=== PATIENT | female | born 1950 | race Caucasian/White ===

== ENCOUNTER 2021-03-14 18:57 | Emergency (ER) | payer MEDICARE ==
[2021-03-14] MEDS ORDERED: Sodium Chloride 0.9% 10 ML Syringe FLUSH PRN (19:40)
[2021-03-14] MEDS ORDERED: Adenosine 6 MG/2 ML SDV IVPUSH ONE ×2 (19:41)
[2021-03-14] MEDS ORDERED: Diltiazem 25 MG/5 ML SDV IVPUSH ONE (19:59)
[2021-03-14] MEDS ORDERED: Diltiazem 25 MG/5 ML SDV ONE (19:59)
--- NOTE | 2021-03-14 20:12 | EDM.PDOC ---
ED HPI GENERAL MEDICAL PROBLEM - General Chief Complaint: General Stated Complaint: COUGH,CHILLS, LIGHT HEADED Time Seen by Provider: 03/14/21 19:39 Source of Information: Reports: Patient, RN Notes Reviewed History Limitations: Reports: No Limitations - History of Present Illness INITIAL COMMENTS - FREE TEXT/NARRATIVE: 70-year-old female presents emergency department day complaint of palpitations, shortness of breath, she is unvaccinated recently took a Covid test she is unsure if it might have been positive. She has had a sore throat and cough for the last 2 days, never had any history of palpitations only takes reflux medication [id number]. 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: - Past Surgical History GI Surgical History: Reports: Appendectomy, Cholecystectomy Female Surgical History: Reports: Hysterectomy Social & Family History - Tobacco Use Tobacco Use Status *Q: Never Tobacco User - Caffeine Use Caffeine Use: Reports: Coffee - Recreational Drug Use Recreational Drug Use: No ED ROS GENERAL - Review of Systems Review Of Systems: See Below Constitutional: Reports: No Symptoms HEENT: Reports: No Symptoms Respiratory: Reports: Shortness of Breath, Cough Cardiovascular: Reports: Dyspnea on Exertion, Palpitations GI/Abdominal: Reports: No Symptoms ED EXAM, GENERAL - Physical Exam Exam: See Below Exam Limited By: No Limitations General Appearance: Alert, WD/WN, No Apparent Distress Respiratory/Chest: No Respiratory Distress, Lungs Clear, Normal Breath Sounds, No Accessory Muscle Use, Chest Non-Tender Cardiovascular: Tachycardia GI/Abdominal: Soft, Non-Tender #1 Interpretation EKG Date: 03/14/21 Time: 21:32 Rhythm: Other (SVT) [place]: Other P-Wave: Absent QRS: RBBB ST-T: Normal QT: Normal Comparison: Change From Previous EKG #2 Interpretation EKG Date: 03/14/21 Time: 21:50 Rhythm: NSR Rate (Beats/Min): 76 [place]: Normal P-Wave: Present QRS: RBBB ST-T: Normal QT: Normal Comparison: Change From Previous EKG Course - Vital Signs Last Recorded V/S: Last Vital Signs Temp 97.5 F 03/14/21 19:25 Pulse 75 03/14/21 22:15 Resp 19 03/14/21 22:15 BP 123/55 L 03/14/21 22:15 Pulse Ox 97 03/14/21 22:15 - Orders/Labs/Meds Orders: Active Orders 24 hr Category Date Time Status Cardiac Monitoring [RC] .As Directed Care 03/14/21 19:40 Active Peripheral IV Care [RC] . DIRECTED Care 03/14/21 19:40 Active Chest 1V Frontal [CR] Stat Exams 03/14/21 19:40 Taken Iopamidol [Isovue-370 (76%)] Med 03/14/21 22:45 Active 71 ml IV . DIRECTED Sodium Chloride 0.9% [Normal Saline] 100 ml Med 03/14/21 22:45 Active IV ASDIRECTED Sodium Chloride 0.9% [Saline Flush] Med 03/14/21 19:40 Active 10 ml FLUSH ASDIRECTED PRN ED Antiarrhythmia Med Reflex [OM.PC] Stat Oth 03/14/21 19:40 Ordered Isolation [COMM] Stat Oth 03/14/21 19:50 Ordered Peripheral IV Insertion Adult [OM.PC] Stat Oth 03/14/21 19:40 Ordered Saline Lock Insert [OM.PC] Stat Oth 03/14/21 19:40 Ordered EKG 12 Lead [EK] Stat Ther 03/14/21 19:40 Ordered EKG 12 Lead [EK] Stat Ther 03/14/21 21:31 Ordered Medication Orders Sodium Chloride (Normal Saline) 100 mls @ 3 mls/sec IV ASDIRECTED DEA Last Admin: 03/14/21 23:14 Dose: 4 mls/sec Documented by: SHARON Iopamidol (Iopamidol 755 Mg/Ml 100 Ml Bottle) 71 ml IV . DIRECTED DEA Last Admin: 03/14/21 23:13 Dose: 71 ml Documented by: SHARON Sodium Chloride (Sodium Chloride 0.9% 10 Ml Syringe) 10 ml FLUSH ASDIRECTED PRN PRN Reason: Keep Vein Open Last Admin: 11/15/21 19:59 Dose: 10 ml Documented by: DAY Labs: Laboratory Tests 03/14/21 03/14/21 03/14/21 Range/Units 19:40 19:40 19:40 WBC 6.3 (4.5-11.0) K/uL RBC 5.24 (3.30-5.50) M/uL Hgb 16.0 H (12.0-15.0) g/dL Hct 46.1 (36.0-48.0) % MCV 88 (80-98) fL MCH 31 (27-31) pg MCHC 35 (32-36) % Plt Count 234 (150-400) K/uL Neut % (Auto) 54.7 (36-66) % Lymph % (Auto) 31.4 (24-44) % Snyder % (Auto) 13.3 H (2-6) % Eos % (Auto) 0.3 L (2-4) % Baso % (Auto) 0.3 (0-1) % D-Dimer, Quantitative (0.0-500.0) ng/mL Sodium 138 L (140-148) mmol/L Potassium 4.1 (3.6-5.2) mmol/L Chloride 104 (100-108) mmol/L Carbon Dioxide 22 (21-32) mmol/L Anion Gap 16.1 H (5.0-14.0) mmol/L BUN 20 H (7-18) mg/dL Creatinine 1.0 (0.6-1.0) mg/dL Est Cr Clr Drug Dosing 50.90 mL/min Estimated GFR (MDRD) 55 L (>60) Glucose 150 H (74-106) mg/dL Lactic Acid 2.1 H (0.4-2.0) mmol/L Calcium 8.8 (8.5-10.1) mg/dL Magnesium (1.8-2.4) mg/dL Total Bilirubin 0.4 (0.2-1.0) mg/dL AST 18 (15-37) U/L ALT 21 (12-78) U/L Alkaline Phosphatase 80 (46-116) U/L Troponin I < 0.017 (0.000-0.056) ng/mL NT-Pro-B Natriuret Pep (5-125) pg/mL Total Protein 7.0 (6.4-8.2) g/dL Albumin 3.8 (3.4-5.0) g/dL Globulin 3.2 (2.3-3.5) g/dL Albumin/Globulin Ratio 1.2 (1.2-2.2) TSH, Ultra Sensitive (0.358-3.740) uIU/mL Influenza Type A RNA (NEGATIVE) RSV RNA (INAAT) (NEGATIVE) Influenza Type B RNA (NEGATIVE) SARS-CoV-2 RNA (FÉLIX) (NEGATIVE) 03/14/21 03/14/21 03/14/21 Range/Units 19:50 20:09 20:10 WBC (4.5-11.0) K/uL RBC (3.30-5.50) M/uL Hgb (12.0-15.0) g/dL Hct (36.0-48.0) % MCV (80-98) fL MCH (27-31) pg MCHC (32-36) % Plt Count (150-400) K/uL Neut % (Auto) (36-66) % Lymph % (Auto) (24-44) % Snyder % (Auto) (2-6) % Eos % (Auto) (2-4) % Baso % (Auto) (0-1) % D-Dimer, Quantitative (0.0-500.0) ng/mL Sodium (140-148) mmol/L Potassium (3.6-5.2) mmol/L Chloride (100-108) mmol/L Carbon Dioxide (21-32) mmol/L Anion Gap (5.0-14.0) mmol/L BUN (7-18) mg/dL Creatinine (0.6-1.0) mg/dL Est Cr Clr Drug Dosing mL/min Estimated GFR (MDRD) (>60) Glucose (74-106) mg/dL Lactic Acid (0.4-2.0) mmol/L Calcium (8.5-10.1) mg/dL Magnesium 1.8 (1.8-2.4) mg/dL Total Bilirubin (0.2-1.0) mg/dL AST (15-37) U/L ALT (12-78) U/L Alkaline Phosphatase (46-116) U/L Troponin I (0.000-0.056) ng/mL NT-Pro-B Natriuret Pep 238 H (5-125) pg/mL Total Protein (6.4-8.2) g/dL Albumin (3.4-5.0) g/dL Globulin (2.3-3.5) g/dL Albumin/Globulin Ratio (1.2-2.2) TSH, Ultra Sensitive 2.688 (0.358-3.740) uIU/mL Influenza Type A RNA Negative (NEGATIVE) RSV RNA (INAAT) Negative (NEGATIVE) Influenza Type B RNA Negative (NEGATIVE) SARS-CoV-2 RNA (FÉLIX) Positive H (NEGATIVE) 03/14/21 Range/Units 21:41 WBC (4.5-11.0) K/uL RBC (3.30-5.50) M/uL Hgb (12.0-15.0) g/dL Hct (36.0-48.0) % MCV (80-98) fL MCH (27-31) pg MCHC (32-36) % Plt Count (150-400) K/uL Neut % (Auto) (36-66) % Lymph % (Auto) (24-44) % Snyder % (Auto) (2-6) % Eos % (Auto) (2-4) % Baso % (Auto) (0-1) % D-Dimer, Quantitative 654.62 H (0.0-500.0) ng/mL Sodium (140-148) mmol/L Potassium (3.6-5.2) mmol/L Chloride (100-108) mmol/L Carbon Dioxide (21-32) mmol/L Anion Gap (5.0-14.0) mmol/L BUN (7-18) mg/dL Creatinine (0.6-1.0) mg/dL Est Cr Clr Drug Dosing mL/min Estimated GFR (MDRD) (>60) Glucose (74-106) mg/dL Lactic Acid (0.4-2.0) mmol/L Calcium (8.5-10.1) mg/dL Magnesium (1.8-2.4) mg/dL Total Bilirubin (0.2-1.0) mg/dL AST (15-37) U/L ALT (12-78) U/L Alkaline Phosphatase (46-116) U/L Troponin I (0.000-0.056) ng/mL NT-Pro-B Natriuret Pep (5-125) pg/mL Total Protein (6.4-8.2) g/dL Albumin (3.4-5.0) g/dL Globulin (2.3-3.5) g/dL Albumin/Globulin Ratio (1.2-2.2) TSH, Ultra Sensitive (0.358-3.740) uIU/mL Influenza Type A RNA (NEGATIVE) RSV RNA (INAAT) (NEGATIVE) Influenza Type B RNA (NEGATIVE) SARS-CoV-2 RNA (FÉLIX) (NEGATIVE) Meds: Medications Generic Name Dose Route Start Last Admin Trade Name Freq PRN Reason Stop Dose Admin Sodium Chloride 100 mls @ 3 mls/sec 03/14/21 22:45 03/14/21 23:14 Normal Saline IV 4 mls/sec ASDIRECTED DEA Administration Iopamidol 71 ml 03/14/21 22:45 03/14/21 23:13 Iopamidol 755 Mg/Ml 100 Ml Bottle IV 71 ml . DIRECTED DEA Administration Sodium Chloride 10 ml 03/14/21 19:40 03/14/21 19:59 Sodium Chloride 0.9% 10 Ml Syringe FLUSH 10 ml ASDIRECTED PRN Administration Keep Vein Open Discontinued Medications Generic Name Dose Route Start Last Admin Trade Name Freq PRN Reason Stop Dose Admin Adenosine 12 mg 03/14/21 19:41 03/14/21 20:05 Adenosine 6 Mg/2 Ml Sdv IVPUSH 03/14/21 19:42 Not Given NOW ONE Adenosine 6 mg 03/14/21 19:41 03/14/21 19:55 Adenosine 6 Mg/2 Ml Sdv IVPUSH 03/14/21 19:42 6 mg NOW ONE Administration Diltiazem HCl 20 mg 03/14/21 19:59 03/14/21 20:00 Diltiazem 25 Mg/5 Ml Sdv IVPUSH 03/14/21 20:00 20 mg ONETIME ONE Administration Diltiazem HCl Confirm 03/14/21 19:59 03/14/21 20:05 Diltiazem 25 Mg/5 Ml Sdv Administered 03/14/21 20:00 Not Given Dose 25 mg .ROUTE .STK-MED ONE Metoprolol Tartrate 5 mg 03/14/21 21:10 Metoprolol Tartrate 5 Mg/5 Ml Sdv IVPUSH 03/14/21 21:11 ONETIME ONE Departure - Departure Time of Disposition: 00:28 Disposition: Home, Self-Care 01 Condition: Fair Clinical Impression: COVID-19, Paroxysmal SVT (supraventricular tachycardia) - Discharge Information Instructions: 10 Things You Can Do to Manage Your COVID-19 Symptoms at Home - [facility] (11/12/2020), Supraventricular Tachycardia, Adult, [id number] Referrals: PCP,None [Primary Care Provider] - Forms: ED Department Discharge Additional Instructions: Outpatient surgery center will call you for an appointment time for your monoclonal antibody therapy, please follow-up with your primary care after your Covid has run its course for further evaluation of the supraventricular tachycardia call return to the emergency department worsening of symptoms Sepsis Event Note (ED) - Evaluation Sepsis Screening Result: No Definite Risk - Focused Exam Vital Signs: Vital Signs Temp Pulse Resp BP Pulse Ox 03/14/21 22:15 75 19 123/55 L 97 03/14/21 21:45 78 23 H 116/71 93 L 03/14/21 20:45 154 H 24 H 103/64 95 03/14/21 20:05 125 H 20 102/47 L 94 L 03/14/21 19:25 97.5 F 170 H 19 120/70 97 - My Orders Last 24 Hours: My Active Orders 03/14/21 19:40 Cardiac Monitoring [RC] .As Directed Peripheral IV Care [RC] . DIRECTED Chest 1V Frontal [CR] Stat Sodium Chloride 0.9% [Saline Flush] 10 ml FLUSH ASDIRECTED PRN ED Antiarrhythmia Med Reflex [OM.PC] Stat Peripheral IV Insertion Adult [OM.PC] Stat Saline Lock Insert [OM.PC] Stat EKG 12 Lead [EK] Stat 03/14/21 19:50 Isolation [COMM] Stat 03/14/21 21:31 EKG 12 Lead [EK] Stat 03/14/21 22:45 Iopamidol [Isovue-370 (76%)] 71 ml IV . DIRECTED Sodium Chloride 0.9% [Normal Saline] 100 ml IV ASDIRECTED - Assessment/Plan Last 24 Hours: My Active Orders 03/14/21 19:40 Cardiac Monitoring [RC] .As Directed Peripheral IV Care [RC] . DIRECTED Chest 1V Frontal [CR] Stat Sodium Chloride 0.9% [Saline Flush] 10 ml FLUSH ASDIRECTED PRN ED Antiarrhythmia Med Reflex [OM.PC] Stat Peripheral IV Insertion Adult [OM.PC] Stat Saline Lock Insert [OM.PC] Stat EKG 12 Lead [EK] Stat 03/14/21 19:50 Isolation [COMM] Stat 03/14/21 21:31 EKG 12 Lead [EK] Stat 03/14/21 22:45 Iopamidol [Isovue-370 (76%)] 71 ml IV . DIRECTED Sodium Chloride 0.9% [Normal Saline] 100 ml IV ASDIRECTED Plan: Assessment Acuity = acute Site and laterality = viral syndrome complicated patient with paroxysmal supraventricular tachycardia Etiology = COVID-19 unclear if this is related to the tachycardia Manifestations = none Location of injury = Home Lab values = CBC unremarkable D-dimer slightly elevated 654 uncertain significance lactic acid slightly elevated 2.1 magnesium normal 1.8 troponin was negative BNP slightly elevated 228 thyroid normal at 2.[address] scan of the chest reveals no pulmonary embolism Plan She remained stable after the Cardizem was given vagal maneuvers and Valsalva had no effect adenosine did slow her down to show P waves were present. She was given 20 mg Cardizem which then slow her down she maintained rate in the 70s for several hours. Plan is to use Cardizem long-acting 120 mg as a pill in the pocket if she gets palpitations she will take this medication. Have also set her up for monoclonal antibody therapy which will hopefully be done this week for follow-up with primary care after the Covid has completed its course. This note was dictated using [employer] voice recognition software please call with any questions on syntax or grammar.
[2021-03-14 20:22] LABS: CORONAVIRUS COVID-19 NAA POSITIVE (NEGATIVE)
[2021-03-14] MEDS ORDERED: Metoprolol Tartrate 5 MG in Sodium Chloride 0.9% 50 ML IV ONE (21:00)
[2021-03-14] MEDS ORDERED: Metoprolol Tartrate 5 MG/5 ML SDV IVPUSH ONE (21:10)
[2021-03-14] MEDS ORDERED: Sodium Chloride 0.9% 100 ML IV SCH (22:45)
[2021-03-14] MEDS ORDERED: Iopamidol 755 Mg/ML 100 ML Bottle IV SCH (22:45)
--- NOTE | 2021-03-14 23:42 | CRLCT ---
For Patients: As a result of the Century Cures Act, medical imaging exams and procedure reports are released immediately into your electronic medical record. You may view this report before your referring provider. If you have questions, please contact your health care provider. INDICATION: COVID, tachycardia, shortness of breath TECHNIQUE: Contrast enhanced axial CT imaging through the chest, optimized for assessment of the pulmonary arterial tree. Contrast agent was administered intravenously. Sagittal and coronal reconstructions are provided. COMPARISON: None FINDINGS: There is adequate opacification of the pulmonary arterial tree without evidence of thromboembolism. The main pulmonary artery is mildly enlarged. The heart is normal in size. There is no pericardial effusion. The thoracic aorta is normal in caliber. There is no mediastinal lymphadenopathy. There is mild bilateral dependent lung atelectasis. The lungs are otherwise clear. There is no pleural effusion or pneumothorax. The thoracic osseous structures are unremarkable. No significant abnormality is demonstrated in the visualized upper abdomen. IMPRESSION: No evidence of pulmonary thromboembolism. Please note that all CT scans at this facility use dose modulation, iterative reconstruction, and/or weight-based dosing when appropriate to reduce radiation dose to as low as reasonably achievable. Dictated by Stew Smart MD @ 03/14/2021 11:41:49 PM (Electronically Signed)
--- NOTE | 2021-03-17 09:29 | CR ---
CHEST: Portable 03/14/2021 at 8:56 PM CLINICAL HISTORY:Positive alejandra virus COMPARISON:None FINDINGS: The heart size, pulmonary vascularity and hilar structures are normal. No infiltrate effusion or pneumothorax is seen. IMPRESSION: No acute cardiopulmonary process.
== END 2021-03-15 00:40 | disposition home or self-care (01) ==
LOC: JP.ED 18:57
DX: U07.1 COVID-19 (principal); I47.1 Supraventricular tachycardia; I45.10 Unspecified right bundle-branch block
CPT/HCPCS: 0241U; 36415; 71045; 71275; 80053; 83605; 83735; 83880; 84443; 84484; 85025; 85379; 93005; 96374; 96375; 99285; J0153; J3490; Q9967